=== PATIENT | male | born 1955 | race Caucasian/White ===

== ENCOUNTER 2018-12-10 18:15 | Emergency (ER) | payer BC ==
[2018-12-10] MEDS ORDERED: Sodium Chloride 0.9% 1000 ML 1,000 ML IV STA ×2 (18:40→21:04)
--- NOTE | 2018-12-10 18:45 | ERPHSYRPT ---
- History of Present Illness Source: patient Exam Limitations: no limitations Patient Subjective Stated Complaint: Pt c/o of left arm numbness and tightness, dizziness, and just not feeling right Triage Nursing Assessment: Pt walked in through the ambulance bay stating that he was extremely dizzy, heart rhythm irregular, hypertensive, nausea, denies vomitting, pulses normal, skin normal and dry Timing/Duration: today Associated Symptoms: nausea, chest pain, other (dizziness, ) Hx Influenza Vaccination/Date Given: Yes (05/2015) Hx Pneumococcal Vaccination/Date Given: No <SALUD,ASHELY - Last Filed: 12/10/18 19:05> <JENA PIERRE CHEATHAM - Last Filed: 12/10/18 22:47> - History of Present Illness Time Seen by Provider: 12/10/18 18:42 Physician History: 63 years old male came to ER with c/o of left arm numbness and tightness, dizziness, and just not feeling right (SALUD,ASHELY) Allergies/Adverse Reactions: No Known Drug Allergies Allergy (Verified 12/10/18 18:33) Home Medications: Amlodipine Besylate 5 mg [Norvasc 5 mg] 10 mg PO DAILY 10/23/15 [History] Aspirin 81 gm Chew [Baby Aspirin 81 mg Chew] 81 mg PO DAILY 10/23/15 [ History] Ranitidine HCl [Zantac] 150 mg PO DAILY 10/23/15 [History] Simvastatin 20 mg PO DAILY 10/23/15 [History] Potassium Chloride 10 Meq Tab* [Klor Con 10 MEQ] 20 tab PO BID 12/05/15 [ History] Carvedilol 6.25 mg PO BID 12/10/18 [History] Irbesartan/Hydrochlorothiazide [Irbesartan-Hctz 300-12.5 mg Tb] 300 mg PO DAILY 12/10/18 [History] Metformin HCl 500 mg [Glucophage 500 MG] 500 mg PO BIDWM 12/10/18 [History ] Omeprazole 40 mg PO DAILY 12/10/18 [History] - Review of Systems Constitutional: No Fever, No Chills Eyes: No Symptoms Ears, Nose, & Throat: No Symptoms Respiratory: No Cough, No Dyspnea Cardiac: Chest Pain, No Edema, No Syncope Abdominal/Gastrointestinal: Nausea, No Abdominal Pain, No Vomiting, No Diarrhea Genitourinary Symptoms: No Dysuria Musculoskeletal: No Back Pain, No Neck Pain Skin: No Rash Neurological: Dizziness, Other, No Focal Weakness, No Sensory Changes Psychological: No Symptoms Endocrine: No Symptoms All Other Systems: Reviewed and Negative <SALUD - Last Filed: 12/10/18 19:05> - Past Medical History Pertinent Past Medical History: Yes Neurological History: No Pertinent History ENT History: No Pertinent History Cardiac History: Hypertension Respiratory History: No Pertinent History Endocrine Medical History: Other Musculoskeletal History: Osteoarthritis GI Medical History: Diverticulosis, GERD, Other History: No Pertinent History Psycho-Social History: No Pertinent History Male Reproductive Disorders: Prostate Problems Other Medical History: Pre-diabetic - Past Surgical History Past Surgical History: Yes Neuro Surgical History: No Pertinent History Cardiac: Cardiac Catheterization Respiratory: No Pertinent History Gastrointestinal: No Pertinent History Genitourinary: No Pertinent History Musculoskeletal: Orthopedic Surgery Male Surgical History: No Pertinent History Other Surgical History: 1975 right meniscus R Knee x2 surgeries. deviated septum. EGD. Colonoscopy - Social History Smoking Status: Never smoker Exposure to second hand smoke: No Drug Use: none Patient Lives Alone: No < - Last Filed: 12/10/18 19:05> - Physical Exam General Appearance: no apparent distress, alert Eye Exam: PERRL/EOMI, eyes nml inspection Ears, Nose, Throat Exam: normal ENT inspection, TMs normal, pharynx normal, moist mucous membranes Neck Exam: normal inspection, non-tender, supple, full range of motion Respiratory Exam: normal breath sounds, lungs clear, No respiratory distress Cardiovascular Exam: regular rate/rhythm, normal heart sounds, normal peripheral pulses Gastrointestinal/Abdomen Exam: soft, normal bowel sounds, No tenderness, No mass Back Exam: normal inspection, normal range of motion, No CVA tenderness, No vertebral tenderness Extremity Exam: normal inspection, normal range of motion, pelvis stable Neurologic Exam: alert, oriented x 3, cooperative, normal mood/affect, nml cerebellar function, nml station & gait, sensation nml, No motor deficits Skin Exam: normal color, warm, dry, No rash Lymphatic Exam: No adenopathy SpO2: 99 <SALUD - Last Filed: 12/10/18 19:05> - Nursing Vital Signs Nursing Vital Signs: Initial Vital Signs Temperature 97.8 F 12/10/18 18:23 Pulse Rate 79 12/10/18 18:23 Respiratory Rate 27 H 12/10/18 18:23 Blood Pressure 154/89 12/10/18 18:23 O2 Sat by Pulse Oximetry 99 12/10/18 18:23 Pain Scale Pain Intensity 0 - Course Nursing assessment & vital signs reviewed: Yes EKG Interpreted by Me: Sinus Rhythm - Radiology Exams Chest X-ray Interpretation: Reviewed by me <ASHELY BRANNON - Last Filed: 12/10/18 19:05> - CT Exams Head CT Interpretation: Tele-radiologist Report (head CT: Impression: Negative for acute intracranial hemorrhage or mass effect) <JEAN PIERRE CHEATHAM - Last Filed: 12/10/18 22:47> Ordered Tests: Active Orders 24 hr Category Date Time Status EKG-ER Only STAT Care 12/10/18 18:40 Active IV Insertion STAT Care 12/10/18 18:44 Active Orthostatic Vital Signs STAT Care 12/10/18 19:30 Active CHEST 1 VIEW (PORTABLE) Stat Exams 12/10/18 18:41 Taken HEAD WITHOUT CONTRAST [CT] Stat Exams 12/10/18 19:30 Taken AMYLASE Stat Lab 12/10/18 18:40 Completed CBC W DIFF Stat Lab 12/10/18 18:54 Completed CMP Stat Lab 12/10/18 18:54 Completed LIPASE Stat Lab 12/10/18 18:40 Completed TROPONIN Q3H Lab 12/10/18 18:56 Completed TROPONIN Q3H Lab 12/10/18 22:07 Completed TROPONIN Q3H Lab 12/11/18 00:45 Ordered TROPONIN Q3H Lab 12/11/18 03:45 Ordered TROPONIN Q3H Lab 12/11/18 06:45 Ordered UA W/RFX UR CULTURE Stat Lab 12/10/18 18:54 Completed Urine Triage Profile Stat Lab 12/10/18 18:54 Completed Medication Summary Discontinued Medications Generic Name Dose Route Start Last Admin Trade Name Freq PRN Reason Stop Dose Admin Sodium Chloride 1,000 mls @ 999 mls/hr 12/10/18 18:40 12/10/18 20:39 Sodium Chloride 0.9% 1000 Ml IV 12/10/18 19:40 Infused .Q1H1M STA Infusion Sodium Chloride Confirm 12/10/18 19:08 Sodium Chloride 0.9% 1000 Ml Administered 12/10/18 19:09 Dose 1,000 mls @ ud .ROUTE .STK-MED ONE Sodium Chloride 1,000 mls @ 999 mls/hr 12/10/18 21:04 12/10/18 21:11 Sodium Chloride 0.9% 1000 Ml IV 12/10/18 22:04 999 mls/hr .Q1H1M STA Administration Sodium Chloride Confirm 12/10/18 21:08 Sodium Chloride 0.9% 1000 Ml Administered 12/10/18 21:09 Dose 1,000 mls @ ud .ROUTE .STK-MED ONE Potassium Chloride 40 meq 12/10/18 21:04 12/10/18 21:10 Klor Con 10 Meq PO 12/10/18 21:05 40 meq STAT ONE Administration Potassium Chloride Confirm 12/10/18 21:08 Klor Con 10 Meq Administered 12/10/18 21:09 Dose 40 meq PO .STK-MED ONE Lab/Rad Data: Laboratory Result Diagrams 12/10/18 18:54 12/10/18 18:54 Laboratory Results 12/10/18 12/10/18 12/10/18 Range/Units 22:07 18:56 18:54 WBC (4.0-10.5) K/mm3 RBC (4.1-5.6) M/mm3 Hgb (12.5-18.0) gm/dl Hct (42-50) % MCV (78-100) fl MCH (26-32) pg MCHC (32-36) g/dl RDW (11.5-14.0) % Plt Count (150-450) K/mm3 MPV (6-9.5) fl Gran % (36.0-66.0) % Eos # (Auto) (0-0.5) Absolute Lymphs (auto) (1.0-4.6) Absolute Monos (auto) (0.0-1.3) Lymphocytes % (24.0-44.0) % Monocytes % (0.0-12.0) % Eosinophils % (0.00-5.0) % Basophils % (0.0-0.4) % Absolute Granulocytes (1.4-6.9) Basophils # (0-0.4) Sodium (137-145) mmol/L Potassium (3.5-5.1) mmol/L Chloride (98-107) mmol/L Carbon Dioxide (22-30) mmol/L Anion Gap (5-15) MEQ/L BUN (9-20) mg/dL Creatinine (0.66-1.25) mg/dL Estimated GFR ML/MIN Glucose (74-106) mg/dL Calcium (8.4-10.2) mg/dL Total Bilirubin (0.2-1.3) mg/dL AST (17-59) U/L ALT (0-50) U/L Alkaline Phosphatase (38-126) U/L Troponin I < 0.012 < 0.012 (0.000-0.034) ng/mL Serum Total Protein (6.3-8.2) g/dL Albumin (3.5-5.0) g/dL Amylase (30-110) U/L Lipase (23-300) U/L Urine Color (YELLOW) Urine Appearance (CLEAR) Urine pH (5-6) Ur Specific Jenner (1.005-1.025) Urine Protein (Negative) Urine Ketones (NEGATIVE) Urine Blood (0-5) Guille/ul Urine Nitrite (NEGATIVE) Urine Bilirubin (NEGATIVE) Urine Urobilinogen (0-1) mg/dL Ur Leukocyte Esterase (NEGATIVE) Urine WBC (Auto) (0-5) /HPF Urine RBC (Auto) (0-2) /HPF U Epithel Cells (Auto) (FEW) /HPF Urine Bacteria (Auto) (NEGATIVE) /HPF Urine Culture Reflexed (NO) Urine Glucose (NEGATIVE) mg/dL Urine Opiates Level NEGATIVE (NEGATIVE) Ur Methadone NEGATIVE (NEGATIVE) Urine Barbiturates NEGATIVE (NEGATIVE) Ur Phencyclidine (PCP) NEGATIVE (NEGATIVE) Urine Amphetamine NEGATIVE (NEGATIVE) U Benzodiazepine Level NEGATIVE (NEGATIVE) Urine Cocaine NEGATIVE (NEGATIVE) Urine Marijuana (THC) NEGATIVE (NEGATIVE) 12/10/18 12/10/18 12/10/18 Range/Units 18:54 18:54 18:54 WBC 10.7 H (4.0-10.5) K/mm3 RBC 5.55 (4.1-5.6) M/mm3 Hgb 16.9 (12.5-18.0) gm/dl Hct 47.5 (42-50) % MCV 85.6 (78-100) fl MCH 30.5 (26-32) pg MCHC 35.6 (32-36) g/dl RDW 14.0 (11.5-14.0) % Plt Count 219 (150-450) K/mm3 MPV 10.0 H (6-9.5) fl Gran % 69.7 H (36.0-66.0) % Eos # (Auto) 0.09 (0-0.5) Absolute Lymphs (auto) 2.27 (1.0-4.6) Absolute Monos (auto) 0.84 (0.0-1.3) Lymphocytes % 21.2 L (24.0-44.0) % Monocytes % 7.9 (0.0-12.0) % Eosinophils % 0.8 (0.00-5.0) % Basophils % 0.4 (0.0-0.4) % Absolute Granulocytes 7.46 H (1.4-6.9) Basophils # 0.04 (0-0.4) Sodium 135 L (137-145) mmol/L Potassium 3.3 L (3.5-5.1) mmol/L Chloride 97 L (98-107) mmol/L Carbon Dioxide 26 (22-30) mmol/L Anion Gap 14.8 (5-15) MEQ/L BUN 13 (9-20) mg/dL Creatinine 0.71 (0.66-1.25) mg/dL Estimated GFR > 60.0 ML/MIN Glucose 123 H (74-106) mg/dL Calcium 9.7 (8.4-10.2) mg/dL Total Bilirubin 1.50 H (0.2-1.3) mg/dL AST 38 (17-59) U/L ALT 30 (0-50) U/L Alkaline Phosphatase 95 (38-126) U/L Troponin I (0.000-0.034) ng/mL Serum Total Protein 7.9 (6.3-8.2) g/dL Albumin 4.5 (3.5-5.0) g/dL Amylase (30-110) U/L Lipase (23-300) U/L Urine Color STRAW (YELLOW) Urine Appearance CLEAR (CLEAR) Urine pH 9.0 (5-6) Ur Specific Jenner 1.004 (1.005-1.025) Urine Protein NEGATIVE (Negative) Urine Ketones SMALL (NEGATIVE) Urine Blood NEGATIVE (0-5) Guille/ul Urine Nitrite NEGATIVE (NEGATIVE) Urine Bilirubin NEGATIVE (NEGATIVE) Urine Urobilinogen NEGATIVE (0-1) mg/dL Ur Leukocyte Esterase NEGATIVE (NEGATIVE) Urine WBC (Auto) NONE (0-5) /HPF Urine RBC (Auto) NONE (0-2) /HPF U Epithel Cells (Auto) NONE (FEW) /HPF Urine Bacteria (Auto) NONE SEEN (NEGATIVE) /HPF Urine Culture Reflexed NO (NO) Urine Glucose NEGATIVE (NEGATIVE) mg/dL Urine Opiates Level (NEGATIVE) Ur Methadone (NEGATIVE) Urine Barbiturates (NEGATIVE) Ur Phencyclidine (PCP) (NEGATIVE) Urine Amphetamine (NEGATIVE) U Benzodiazepine Level (NEGATIVE) Urine Cocaine (NEGATIVE) Urine Marijuana (THC) (NEGATIVE) 12/10/18 Range/Units 18:40 WBC (4.0-10.5) K/mm3 RBC (4.1-5.6) M/mm3 Hgb (12.5-18.0) gm/dl Hct (42-50) % MCV (78-100) fl MCH (26-32) pg MCHC (32-36) g/dl RDW (11.5-14.0) % Plt Count (150-450) K/mm3 MPV (6-9.5) fl Gran % (36.0-66.0) % Eos # (Auto) (0-0.5) Absolute Lymphs (auto) (1.0-4.6) Absolute Monos (auto) (0.0-1.3) Lymphocytes % (24.0-44.0) % Monocytes % (0.0-12.0) % Eosinophils % (0.00-5.0) % Basophils % (0.0-0.4) % Absolute Granulocytes (1.4-6.9) Basophils # (0-0.4) Sodium (137-145) mmol/L Potassium (3.5-5.1) mmol/L Chloride (98-107) mmol/L Carbon Dioxide (22-30) mmol/L Anion Gap (5-15) MEQ/L BUN (9-20) mg/dL Creatinine (0.66-1.25) mg/dL Estimated GFR ML/MIN Glucose (74-106) mg/dL Calcium (8.4-10.2) mg/dL Total Bilirubin (0.2-1.3) mg/dL AST (17-59) U/L ALT (0-50) U/L Alkaline Phosphatase (38-126) U/L Troponin I (0.000-0.034) ng/mL Serum Total Protein (6.3-8.2) g/dL Albumin (3.5-5.0) g/dL Amylase 74 (30-110) U/L Lipase 82 (23-300) U/L Urine Color (YELLOW) Urine Appearance (CLEAR) Urine pH (5-6) Ur Specific Jenner (1.005-1.025) Urine Protein (Negative) Urine Ketones (NEGATIVE) Urine Blood (0-5) Guille/ul Urine Nitrite (NEGATIVE) Urine Bilirubin (NEGATIVE) Urine Urobilinogen (0-1) mg/dL Ur Leukocyte Esterase (NEGATIVE) Urine WBC (Auto) (0-5) /HPF Urine RBC (Auto) (0-2) /HPF U Epithel Cells (Auto) (FEW) /HPF Urine Bacteria (Auto) (NEGATIVE) /HPF Urine Culture Reflexed (NO) Urine Glucose (NEGATIVE) mg/dL Urine Opiates Level (NEGATIVE) Ur Methadone (NEGATIVE) Urine Barbiturates (NEGATIVE) Ur Phencyclidine (PCP) (NEGATIVE) Urine Amphetamine (NEGATIVE) U Benzodiazepine Level (NEGATIVE) Urine Cocaine (NEGATIVE) Urine Marijuana (THC) (NEGATIVE) <SALUD,ASHELY - Last Filed: 12/10/18 19:05> - Progress Progress: improved <JEAN PIERRE CHEATHAM - Last Filed: 12/10/18 22:47> - Progress Progress Note: 12/10/18 19:31 Is a 63-year-old white male with history of high blood pressure, arthritis, diverticulosis, GERD, prostate problems who states he is prediabetic he arrives with complaint of dizziness since this morning. He has not had any movement problems he initially had been written down is complaining of tightness in his left arm however he states he's been feeling as if he is tight all over his entire body he states he is somewhat concerned that his potassium might be off. Is not having a problems moving is not short of breath is not having chest pain. Past medical history includes hypertension, she arthritis, diverticulosis, GERD , prostate problems, prediabetic Past surgical history includes cardiac catheter which he states was okay, he's had a right meniscus surgeries on his knee x2 in septal surgery on his nose. Social history patient denies tobacco alcohol or illicit drug use (he does state that he was told by his physician to drink red wine) Physical examination well-developed well-nourished white male he is alert oriented x3, Head is atraumatic normocephalic. Eyes PERRLA EOMI fundi unremarkable. Ears TMs are intact bilaterally. Nose is clear throat is clear. Neck is supple. Lungs are clear. Heart regular rate rhythm without murmur. Abdomen soft nontender nondistended positive bowel sounds. Extremities full range with pulse equal symmetrical two over four. Neuro patient alert oriented x3 cranial nerves II through XII are intact no facial droops each is normal tongue no deviation normal finger to nose casino controller are equal symmetrical 5 over 5 full range of motion to all extremities sensation intact to all extremities. Initial EKG large marlin artifact appears to be sinus rhythm with a lot of artifact with a few PVCs no acute ST or T wave changes Patient's labs sodium 135 potassium 3.3 chloride 97 BUN 13 creatinine 0.71 glucose 123 Urinalysis specific gravity 1.004 pH 9.0 urine drug screen is unremarkable troponin is pending Impression dizziness plan patient is receiving IV normal saline I ordered a repeat EKG repeat EKG performed at December 10, 2018 1930 5 PM sinus rhythm she CABG per minute normal axis no acute ST or T wave changes normal EKG I've also ordered a CT of the head for the patient because of his complaint of severe dizziness all day. Will await troponin./ Patient with normal neurologic evaluation. 12/10/18 21:08 Patient stable orthostatics mildly positive hemoglobin 16.9 hematocrit 47.5 platelets 219 white count 10.7 Chemistry essentially normal with the exception of potassium 3.3 Total bilirubin mildly elevated 1.5 amylase and lipase have been ordered troponin is within normal limits chest x-ray no acute disease process is noted head CT no acute intercranial will process is noted urinalysis within normal limits urine drug screen essentially normal Will give patient another liter of normal saline plan to repeat troponin 3 hours after last draw patient will be given potassium 40 mEq orally. patient feeling much better after potassium and IV fluids. Repeat troponin within normal limits. Will discharge. 12/10/18 22:45 (JEAN PIERRE CHEATHAM) <ASHELY BRANNON - Last Filed: 12/10/18 19:05> - Departure Departure Disposition: Home Critical Care Time: No <JEAN PIERRE CHEATHAM - Last Filed: 12/10/18 22:47> - Departure Clinical Impression: Dizziness, Dehydration, Hypokalemia Condition: Fair Referrals: DEISY BARRIOS [Primary Care Provider] - Additional Instructions: Return home. Plenty of fluids. Continue medications as prescribed by your family . call tomorrow to schedule an appointment Followup with your family . Return for acute distress or for severe symptoms or for any problems
[2018-12-10 18:59] LABS: BASOPHIL % 0.4 % (0.0-0.4); Basophil (Absolute #) 0.04 (0-0.4); Eosinophil % 0.8 % (0.00-5.0); Eosinophil (Absolute #) 0.09 (0-0.5); Granulocyte Absolute (ANC) 7.46 (1.4-6.9); Granulocytes % 69.7 % (36.0-66.0); Hematocrit 47.5 % (42-50); Hemoglobin 16.9 gm/dl (12.5-18.0); Lymphocyte (Absolute #) 2.27 (1.0-4.6); Lymphocytes % 21.2 % (24.0-44.0); Mean Cell Volume 85.6 fl (78-100); Mean Corpuscular Hemoglobin 30.5 pg (26-32); Mean Corpuscular Hgb Concent. 35.6 g/dl (32-36); Monocyte (Absolute #) 0.84 (0.0-1.3); Monocytes % 7.9 % (0.0-12.0); Platelet Count 219 K/mm3 (150-450); Red Blood Count 5.55 M/mm3 (4.1-5.6); White Blood Count 10.7 K/mm3 (4.0-10.5)
[2018-12-10 19:03] LABS: Appearance CLEAR (CLEAR); Bilirubin NEGATIVE (NEGATIVE); Blood NEGATIVE Ery/ul (0-5); Glucose NEGATIVE (NEGATIVE); Ketones SMALL (NEGATIVE); Leukocyte Esterase NEGATIVE (NEGATIVE); Nitrite NEGATIVE (NEGATIVE); Protein,Urine Dip NEGATIVE (Negative); Specific Gravity 1.004 (1.005-1.025); Urobilinogen NEGATIVE mg/dL (0-1)
[2018-12-10] MEDS ORDERED: Sodium Chloride 0.9% 1000 ML 1,000 ML ONE ×2 (19:08→21:08)
[2018-12-10 19:15] LABS: Bacteria NONE SEEN /HPF (NEGATIVE)
[2018-12-10 19:17] LABS: Amphetamine,Urine NEGATIVE (NEGATIVE); Barbiturate,Urine NEGATIVE (NEGATIVE); Benzodiazepine,Urine NEGATIVE (NEGATIVE); Cocaine,Urine NEGATIVE (NEGATIVE); Methadone,Urine NEGATIVE (NEGATIVE); Opiate,Urine NEGATIVE (NEGATIVE); PCP,Urine NEGATIVE (NEGATIVE); THC,Urine NEGATIVE (NEGATIVE)
[2018-12-10 19:21] LABS: ALBUMIN 4.5 g/dL (3.5-5.0); ALKALINE PHOSPHATASE 95 U/L (38-126); ANION GAP 14.8 MEQ/L (5-15); BLOOD UREA NITROGEN 13 mg/dL (9-20); CHLORIDE 97 mmol/L (98-107); Calcium 9.7 mg/dL (8.4-10.2); Carbon Dioxide 26 mmol/L (22-30); Creatinine 1 0.71 mg/dL (0.66-1.25); Glucose 123 mg/dL (74-106); Potassium 3.3 mmol/L (3.5-5.1); SGOT/AST 38 U/L (17-59); SGPT/ALT 30 U/L (0-50); SODIUM 135 mmol/L (137-145); Total Protein 7.9 g/dL (6.3-8.2)
[2018-12-10] MEDS ORDERED: Klor Con 10 MEQ PO ONE ×2 (21:04→21:08)
[2018-12-10 21:11] LABS: AMYLASE 74 U/L (30-110); LIPASE 82 U/L (23-300)
[2018-12-10 22:54] VITALS: BP 142/81; PULSE 60; O2SAT 98
--- NOTE | 2018-12-11 08:44 | XRAY ---
Indication: Dizziness. Comparison: None Portable chest demonstrates normal heart, lungs, and bony thorax with incidental calcified granulomas.
--- NOTE | 2018-12-11 08:44 | XRAY ---
Indication: Dizziness, nausea, and finger numbness. Multiple contiguous axial images obtained through the head without contrast. Comparison: None. Normal appearing brain parenchyma, ventricles, and bony calvarium. Incompletely visualized 1 cm right maxillary sinus polyp/retention cyst. Minimal mucosal thickening of both ethmoid, sphenoid, and left maxillary sinuses. Mastoid air cells are clear. Impression: 1. Paranasal sinus disease. 2. Remaining CT head without contrast exam is negative.. Comment: Preliminary interpretation was made by [facility]. No critical discrepancy. CT DI 69.25
== END 2018-12-10 23:00 | disposition home or self-care (01) ==
LOC: ED 18:15
DX: R42 Dizziness and giddiness (principal); E86.0 Dehydration; E87.6 Hypokalemia
CPT/HCPCS: 36000; 36415; 70450; 71045; 80053; 80307; 81001; 82150; 83690; 84484; 85025; 93005; 96360; 96361; 99284; A9270-GY